=== PATIENT | male | born 1970 | race Caucasian/White ===

== ENCOUNTER 2023-02-03 09:00 | Emergency (ER) | payer SELFPAY ==
[2023-02-03 09:03] VITALS: BP 174/105; PULSE 80; RESP 20; O2SAT 98
--- NOTE | 2023-02-03 09:15 | W.ED.BACK ---
HPI - Back Pain/Injury General: Chief Complaint: Nausea/Vomiting/Diarrhea Stated Complaint: Lower back pain, N/V Time Seen by Provider: 02/03/23 09:04 Source: patient Mode of arrival: ambulatory Limitations: no limitations History of Present Illness: Patient is a nice 53-year-old male presents to ED today with presumedly his for complaints of nausea, vomiting, and back pain. Patient states this morning he began feeling sick to his stomach and nauseous. States shortly after he began noticing pain to his lower back with slight left-sided dominance. Patient states he has chronic back pains so initially thought his pain could be secondary to that. 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 Patient does not seem to be able to tell me whether he feels like this pain is his normal back discomfort only worse in severity or if this pain feels differently. He does not seem to feel like the pain radiates around into his abdomen or groin. No urinary symptoms. No history of nephro or ureterolithiasis. He is not complaining of pain radiating down into his legs but states it does seem to radiate into left buttock. MD elicited complaint: back pain Pertinent past history: prior back pain Onset (ago): hour(s) Timing: constant Severity: severe Similar Symptoms Previously: Yes Location: lumbar spine and left lower back Radiation: none Exacerbating factors: movement Relieving factors: none Associated symptoms: Reports nausea and vomiting; Deny abdominal pain, chills, change in bowel habits, dysuria, fatigue, fever(s) or urinary urgency Work related injury: No Review of Systems Const: Denies: fever(s), chills, body aches, fatigue or malaise Card: Denies: chest pain Resp: Denies: dyspnea GI: Reports: nausea and vomiting; Denies: abdominal pain or change in bowel habits : Denies: flank pain, difficulty urinating, dysuria, urinary frequency, urinary urgency or urinary hesitancy Musc: Reports: back pain; Denies: neck pain, extremity pain, extremity swelling, joint pain or joint swelling Skin/Breast: Denies: rash Neuro: Denies: headache(s), numbness in extremities, weakness in extremities or sensory changes Physical Exam Const: COMMON NORMALS: patient oriented x3, no limitations, healthy appearing, alert and well nourished GENERAL APPEARANCE: in distress (appears significant uncomfortable secondary to pain) ORIENTATION/CONSCIOUSNESS: Yes awake, Yes oriented to person, Yes oriented to place and Yes oriented to time OTHER: pt is lying face down half way on exam bed secondary to pain HENMT: COMMON NORMALS: normocephalic and atraumatic HEAD & SCALP: normal to inspection, normocephalic and atraumatic Resp: COMMON NORMALS: normal respiratory effort and clear to auscultation bilaterally AUSCULTATION: clear to auscultation bilaterally Cardio: COMMON NORMALS: regular rate and regular rhythm RATE: regular rate RHYTHM: regular rhythm GI: OTHER: could not be performed as patient is lying face down on abdomen due to pain in back and states he cannot move from that position secondary to pain : COMMON NORMALS: Yes no CVA tenderness BLADDER/KIDNEY EXAM: Yes no CVA tenderness Back/Pelvis: COMMON NORMALS: no CVA tenderness THORACIC SPINE/UPPER BACK: No thoracic spinal tenderness, No paraspinal muscle tenderness and No paraspinal muscle spasm LUMBAR SPINE/LOWER BACK: Yes ROM limited, Yes lumbar spinal tenderness, Yes paraspinal muscle tenderness and No mass present SACROILIAC JOINTS: Yes SI joints normal SACRUM: no tenderness COCCYX: no tenderness BACK IMAGE (MALE): 1. TTP Extremity: COMMON NORMALS: no clubbing, cyanosis or edema, no calf tenderness and no pedal edema GENERAL: Yes normal exam except as noted Neuro: COMMON NORMALS: patient oriented x3, moves all extremities, no focal motor deficits and no sensory deficits noted SENSORIUM/ORIENTATION: Yes alert, Yes oriented to person, Yes oriented to place and Yes oriented to time GAIT: Yes Unable to assess gait Skin: COMMON NORMALS: no rashes or lesions noted GENERAL SKIN EXAM: no rashes or lesions noted Course ED course: Patient's pain seems fairly out of proportion to exam findings. In addition it was difficult to get his nausea/vomiting under control. Patient was reassessed multiple times. Eventually patient was able to roll over onto his back to allow better examination of his abdomen. Patient did report tenderness throughout his abdomen. Due to tenderness and clinical presentation I did opt to obtain CT imaging was normal. Patient was given additional pain and nausea medications and finally pain/nausea/vomiting seem to subside. Patient was once again reassessed and states he does feel much better now. His blood work is overall unremarkable. UA is negative for hematuria. I did consider ureter stone however with no hematuria and no findings on CT imaging I think this is unlikely. Acute exacerbation to his chronic lower back pain is the most likely etiology. He has no acute neurologic deficits to warrant emergent CT imaging. He has no systemic complaints or fevers and no risk factors to suggest epidural abscess or discitis. Patient will be placed on steroids and muscle relaxers in addition to his daily Aleve. Recommend strict follow-up with his primary care in 1 to 2 days for reevaluation. Return ED precautions given. Vital Signs: Vital signs: Vital Signs Pulse Rate 81 02/03/23 15:21 Respiratory Rate 14 02/03/23 15:21 Blood Pressure 165/89 02/03/23 15:21 Pulse Oximetry 99 02/03/23 15:21 Oxygen Delivery Me thod Room Air 02/03/23 11:45 MDM - Back Pain/Injury Medical Decision Making See ED course Labs 02/03/23 09:45 02/03/23 09:45 Radiology Impressions Abdomen/Pelvis CT 02/03/23 11:22 IMPRESSION: 1. No acute abdominal or pelvic abnormalities. 2. No GI tract obstruction. 3. Normal appendix. 4. No hydronephrosis. 5. Normal aorta. Laboratory Results WBC 13.4 10^3/uL (4.0-10.0) H 02/03/23 09:45 RBC 5.11 10^6/uL (4.1-5.3) 02/03/23 09:45 Hgb 15.4 g/dL (11.7-16.6) 02/03/23 09:45 Hct 45.1 % (42.0-52.0) 02/03/23 09:45 MCV 88.3 fl (80-94) 02/03/23 09:45 MCH 30.1 pg (28.0-34.0) 02/03/23 09:45 MCHC 34.1 g/dL (30.0-36.0) 02/03/23 09:45 RDW 12.2 % (12.1-15.1) 02/03/23 09:45 Plt Count 319 10^3/cmm (130-400) 02/03/23 09:45 MPV 10.2 fL (7.4-10.4) 02/03/23 09:45 Neut % (Auto) 80.3 % 02/03/23 09:45 Lymph % (Auto) 10.4 % 02/03/23 09:45 [place] % (Auto) 5.0 % 02/03/23 09:45 Eos % (Auto) 2.7 % 02/03/23 09:45 Baso % (Auto) 1.2 % 02/03/23 09:45 Neut # (Auto) 10.77 10^3/uL (1.8-7.7) H 02/03/23 09:45 Lymph # (Auto) 1.4 10^3/uL (0.8-4.8) 02/03/23 09:45 [place] # (Auto) 0.7 10^3/uL (0.2-0.9) 02/03/23 09:45 Eos # (Auto) 0.4 10^3/uL (0.0-0.8) 02/03/23 09:45 Baso # (Auto) 0.2 10^3/uL (0.0-0.1) H 02/03/23 09:45 Nucleated RBC % (auto) 0 % 02/03/23 09:45 Nucleated RBCs # 0.0 /100WBC 02/03/23 09:45 Sodium 137 mmol/L (136-145) 02/03/23 09:45 Potassium 3.7 mmol/L (3.5-5.1) 02/03/23 09:45 Chloride 103 mmol/L (98-107) 02/03/23 09:45 Carbon Dioxide 21 mmol/L (22-29) L 02/03/23 09:45 Anion Gap 16.7 (5-19) 02/03/23 09:45 BUN 16 mg/dL (6-20) 02/03/23 09:45 Creatinine 0.9 mg/dL (0.7-1.2) 02/03/23 09:45 GFR Calculation 87.9 mL/min (90-130) L 02/03/23 09:45 Glucose 138 mg/dL (65-115) H 02/03/23 09:45 Calculated Osmolality 287 mOsm/kg (285-295) 02/03/23 09:45 Calcium 9.2 mg/dL (8.5-10.5) 02/03/23 09:45 Total Bilirubin 0.5 mg/dL (0.15-1.2) 02/03/23 09:45 AST 23 U/L (0-40) 02/03/23 09:45 ALT 24 U/L (0-41) 02/03/23 09:45 Alkaline Phosphatase 91 U/L (40-130) 02/03/23 09:45 Total Protein 7.0 g/dL (6.6-8.7) 02/03/23 09:45 Albumin 4.2 g/dL (3.5-5.2) 02/03/23 09:45 Globulin 2.8 g/dL (1.3-4.6) 02/03/23 09:45 Urine Color Yellow (Yellow) 02/03/23 09:30 Urine Appearance Clear (CLEAR) 02/03/23 09:30 Urine pH 7 (5-7) 02/03/23 09:30 Ur Specific [place] 1.010 (1.005-1.030) 02/03/23 09:30 Urine Protein Neg (Negative) 02/03/23 09:30 Urine Glucose (UA) Norm (Normal) 02/03/23 09:30 Urine Ketones 1+ (Negative) H 02/03/23 09:30 Urine Blood Neg (Negative) 02/03/23 09:30 Urine Nitrate Negative (Negative) 02/03/23 09:30 Urine Bilirubin Neg (Negative) 02/03/23 09:30 Urine Urobilinogen Norm mg/dL (Negative) 02/03/23 09:30 Ur Leukocyte Esterase Negative (Negative) 02/03/23 09:30 Discharge Plan Discharge Patient Disposition: Home Clinical Impression: Low back strain Qualifiers: Encounter type: initial encounter Qualified Code(s): S39.012A - Strain of muscle, fascia and tendon of lower back, initial encounter Condition: Stable Prescriptions: New methocarbamol 500 mg tablet 1,000 mg PO Q8H Qty: 30 0RF Medrol (Cruz) 4 mg tablets,dose pack See Rx Instructions .ROUTE .COMPLEX Qty: 21 0RF Rx Instructions: orally per package directions No Action multivitamin Tablet 1 tab PO DAILY Benadryl 25 mg Capsule 25 mg PO BEDTIME Discharge Orders: Discharge ED (Routine); Ordered 02/03/23 Ordered By: Floresita Jackson Coding Level of Care Code ED Environmental Protection Specialist for Tamerag Rah
[2023-02-03 09:49] LABS: Add Urine Microscopic? NO; Charge for UA Resulting for Rev
[2023-02-03 09:51] LABS: Basophils # 0.2 10^3/uL (0.0-0.1); Basophils % 1.2 %; Eosinophils # 0.4 10^3/uL (0.0-0.8); Eosinophils % 2.7 %; Hematocrit 45.1 % (42.0-52.0); Hemoglobin 15.4 g/dL (11.7-16.6); Lymphocytes # 1.4 10^3/uL (0.8-4.8); Lymphocytes % 10.4 %; Mean Corpuscular HGB Conc 34.1 g/dL (30.0-36.0); Mean Corpuscular Hemoglobin 30.1 pg (28.0-34.0); Mean Corpuscular Volume 88.3 fl (80-94); Mean Platelet Volume 10.2 fL (7.4-10.4); Monocytes # 0.7 10^3/uL (0.2-0.9); Neutrophils # 10.77 10^3/uL (1.8-7.7); Neutrophils % 80.3 %; Nucleated Red Blood Cells % 0 %; Platelet Count 319 10^3/cmm (130-400); Red Blood Count 5.11 10^6/uL (4.1-5.3); Red Cell Distribution Width 12.2 % (12.1-15.1); White Blood Count 13.4 10^3/uL (4.0-10.0)
[2023-02-03 10:00] VITALS: RESP 20
[2023-02-03] MEDS: morphine 4 mg/mL SDV 1 mL IVP (10:00)
[2023-02-03] MEDS: ketorolac 30 mg/mL INJ IVP (10:00)
[2023-02-03] MEDS: ondansetron 2 mg/ML SDV 2 mL 4 MG IVP (10:01)
--- NOTE | 2023-02-03 10:04 | DCPLANNER ---
pharmacy operations manager seen patient due to no primary care physician. pharmacy operations manager spoke with patient and offered to help get patient established with a primary care physician, patient stated that he does not have insurance. pharmacy operations manager gave patient the information to [facility] where patient can apply for the sliding scale.
[2023-02-03 10:08] LABS: Bilirubin Urine Neg (Negative); Blood Urine Neg (Negative); Glucose Urine UA Norm (Normal); Ketones Urine 1+ (Negative); Leukocyte Esterase Urine Negative (Negative); Nitrate Urine Negative (Negative); Protein Urine Neg (Negative); Urine Appearance Clear (CLEAR); Urine Color Yellow (Yellow); Urobilinogen Urine Norm (Negative); pH Urine 7 (5-7)
[2023-02-03 10:20] LABS: Alanine Aminotransferase 24 U/L (0-41); Albumin Level 4.2 g/dL (3.5-5.2); Alkaline Phosphatase 91 U/L (40-130); Anion Gap 16.7 (5-19); Aspartate Amino Transferase 23 U/L (0-40); Blood Urea Nitrogen 16 mg/dL (6-20); Calcium 9.2 mg/dL (8.5-10.5); Carbon Dioxide 21 mmol/L (22-29); Chloride 103 mmol/L (98-107); Globulin 2.8 g/dL (1.3-4.6); Glomerular Filtration Rate 87.9 mL/min (90-130); Glucose 138 mg/dL (65-115); Osmolality Calculated 287 mOsm/kg (285-295); Potassium 3.7 mmol/L (3.5-5.1); Sodium 137 mmol/L (136-145); Total Bilirubin 0.5 mg/dL (0.15-1.2)
[2023-02-03] MEDS: metoclopramide 5 mg/mL SDV 2 mL 10 MG IVP (10:48)
[2023-02-03] MEDS: dexamethasone 4 mg/mL INJ 8 MG IVP (10:48)
--- NOTE | 2023-02-03 11:21 | PC.PHAR ---
pt states he takes no rx medications pt states only taking the medications entered
--- NOTE | 2023-02-03 11:22 | CT_ITS ---
WS: [id number] CT ABDOMEN AND PELVIS WITH CONTRAST HISTORY: severe back/abdominal pain; N/V TECHNIQUE: Imaging performed of the abdomen and pelvis with IV contrast. Single phase imaging of the abdomen. Coronal and sagittal reformats are submitted. All CT scans at [facility] use at [address] [facility] one of these dose optimization techniques: automated exposure control; mA and/or kV adjustment per patient size (includes targeted exams where dose is matched to clinical indication); or iterative re construction. IV CONTRAST: Omnipaque 350; 100 mL IV. Oral contrast: Yes. DLP: 602.53 mGy.cm COMPARISON: 01/09/2013 Lower thorax: Lung bases are clear. Heart is normal size. No hiatal hernia. Liver/biliary system: Normal size with no intrahepatic dilatation. Gallbladder: Normal. No gallstones or wall thickening. No pericholecystic fluid. Pancreas: Normal size pancreas and pancreatic duct. No adjacent inflammation. Spleen: Normal size spleen. No mass or infarct. Adrenal glands: Normal. Right kidney: Normal. Left kidney: Normal. Aorta: Normal. Lymphadenopathy: None. Free fluid: None. GI tract: No GI tract obstruction. No submucosal edema. Normal appendix. No diverticulosis. Abdominal wall: Fat containing umbilical hernia. Pelvis: No free fluid or adenopathy within the pelvis. Bones: Moderate degenerative disc disease at L4-5 and L5-S1. Bone island proximal LEFT femur. CT/CT abdomen pelvis w con* [id number] IMPRESSION: 1. No acute abdominal or pelvic abnormalities. 2. No GI tract obstruction. 3. Normal appendix. 4. No hydronephrosis. 5. Normal aorta.
[2023-02-03 11:45] VITALS: BP 140/73; PULSE 83; RESP 22; O2SAT 97
[2023-02-03] MEDS: iohexol 350 mg/mL 500 mL Btl (per mL) IV (11:47)
[2023-02-03] MEDS: tizanidine 4 mg Tablet 2 MG PO (11:51)
[2023-02-03] MEDS: HYDROmorphone 1 mg/mL INJ 1 mL IVP (13:16)
[2023-02-03] MEDS: promethazine 25 mg/mL SDV 1 mL 50 MG IM (13:31)
[2023-02-03 15:21] VITALS: BP 165/89; PULSE 81; RESP 14; O2SAT 99
== END 2023-02-03 15:22 | disposition home or self-care (01) ==
PROVIDERS: Emergency Provider Physician Assistant
DX: S39.012A Strain of muscle, fascia and tendon of lower back, initial encounter (principal); X58.XXXA Exposure to other specified factors, initial encounter
CPT/HCPCS: 36415; 74177; 80053; 81003; 85025; 96372; 96374; 96375; 99285; J1100; J1170; J1885; J2270; J2405; J2550; J2765; Q9967

== ENCOUNTER 2023-09-21 09:47 | Outpatient (CLI) | payer OTHER, SELFPAY ==
--- NOTE | 2023-09-21 10:00 | XR_ITS ---
WS: [id number] Lumbar spine, 3 views, 09/21/2023 Clinical Data: PAIN ROM DIFFICULTY Comparison: CT lumbar spine, 05/27/2012 Findings: No compression fractures or subluxation is seen. There is degenerative disc narrowing at L4-L5 and L5 -S1. Accompanying osteophytes are seen at L4-S1. The transverse processes and SI joints are normal. There is loss of the normal lordotic curvature. 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
--- NOTE | 2023-09-21 10:00 | XR_ITS ---
WS: [id number] Left knee, AP and lateral views, 09/21/2023 Clinical Data: PAIN ROM DIFFICULTY Comparison: None. Findings: No fractures or dislocations are seen. The joint spaces are normal. The patella is intact. The soft t issues are unremarkable. Impression: Negative left knee. Kellgren-Alex Classification: grade 0 (none): definite absence of x-ray changes of osteoarthritis
== END 2023-09-21 09:48 | disposition home or self-care (01) ==
PROVIDERS: PCP Emergency Medicine; Visit Provider Emergency Medicine
DX: Z02.71 Encounter for disability determination (principal); M51.37 Other intervertebral disc degeneration, lumbosacral region; M47.817 Spondylosis without myelopathy or radiculopathy, lumbosacral region; M53.86 Other specified dorsopathies, lumbar region; M25.562 Pain in left knee; M25.662 Stiffness of left knee, not elsewhere classified
CPT/HCPCS: 72100; 73560

== ENCOUNTER 2024-01-02 11:29 | Emergency (ER) | payer SELFPAY ==
[2024-01-02 11:40] VITALS: BP 154/94; PULSE 76; RESP 18; TEMP 36.4; O2SAT 100; BMI 26.7
--- NOTE | 2024-01-02 11:49 | ED_ITS ---
HPI - Back Pain/Injury General: Chief Complaint: Back Pain/Injury Stated Complaint: back pain Time Seen by Provider: 01/02/24 11:39 Source: patient Mode of arrival: ambulatory Limitations: no limitations History of Present Illness: Patient is a 53-year-old male who presents to ED today for evaluation and treatment of left lower back pain. Patient states yesterday he was picking up a flowerpot and immediately felt something pull to his left lower back and has had discomfort since. States pain does not seem to radiate around into his abdomen or chest. He is not having any radicular symptoms down into his legs. No saddle anesthesia or bowel or bladder dysfunction. MD elicited complaint: back injury Pertinent past history: prior back pain Onset (ago): day(s) (yesterday) Timing: constant Severity: severe Similar Symptoms Previously: Yes Location: left lower back Radiation: none Exacerbating factors: movement, walking and lifting Relieving factors: none Context: while lifting Associated symptoms: Reports no associated symptoms; Deny abdominal pain, chills, dysuria, fatigue, fever(s) or urinary urgency Work related injury: No Review of Systems Const: Denies: fever(s), chills, body aches, fatigue or malaise Card: Denies: chest pain Resp: Denies: dyspnea GI: Denies: abdominal pain : Denies: flank pain, difficulty urinating, dysuria, urinary frequency, urinary urgency or urinary hesitancy Musc: Reports: back pain; Denies: neck pain, extremity pain, extremity swelling, joint pain or joint swelling Skin/Breast: Denies: rash Neuro: Denies: numbness in extremities, weakness in extremities or sensory changes Physical Exam Const: COMMON NORMALS: average body habitus, patient oriented x3, no limitations, healthy appearing, alert and well nourished GENERAL APPEARANCE: cooperative and in distress (lying face down on bed hanging off table due to back pain) ORIENTATION/CONSCIOUSNESS: Yes awake, Yes oriented to person, Yes oriented to place and Yes oriented to time Resp: COMMON NORMALS: normal respiratory effort Cardio: COMMON NORMALS: regular rate and regular rhythm RATE: regular rate RHYTHM: regular rhythm GI: COMMON NORMALS: Normal to inspection, nondistended, normoactive bowel sounds present, Soft to palpation, non-tender, No hepatosplenomegaly present and no masses PALPATION: Yes Soft to palpation and Yes No hepatosplenomegaly present : COMMON NORMALS: Yes no CVA tenderness BLADDER/KIDNEY EXAM: Yes no CVA tenderness Back/Pelvis: COMMON NORMALS: no CVA tenderness, thoracic and lumbar spine normal to inspection, no thoracic nor lumbar tenderness and straight leg raise negative bilaterally THORACIC SPINE/UPPER BACK: No thoracic spinal tenderness, No paraspinal muscle tenderness and No paraspinal muscle spasm LUMBAR SPINE/LOWER BACK: No lumbar spinal tenderness, Yes paraspinal muscle tenderness Lumbar paraspinal muscle tenderness: left, Yes paraspinal muscle spasm Lumbar paraspinal muscle spasm: left, No mass present and Yes straight leg raise negative bilaterally PELVIS: Yes buttocks normal and No sciatic notch tenderness SACROILIAC JOINTS: Yes SI joints normal SACRUM: no tenderness COCCYX: no tenderness Extremity: COMMON NORMALS: no clubbing, cyanosis or edema, no calf tenderness and no pedal edema GENERAL: Yes normal exam except as noted Neuro: COMMON NORMALS: patient oriented x3, moves all extremities, no focal motor deficits and no sensory deficits noted SENSORIUM/ORIENTATION: Yes alert, Yes oriented to person, Yes oriented to place and Yes oriented to time GAIT: Yes Unable to assess gait MOTOR EXAM: 5/5 motor strength present throughout Skin: COMMON NORMALS: no rashes or lesions noted GENERAL SKIN EXAM: no rashes or lesions noted Course Vital Signs: Vital signs: Vital Signs Temperature 97.5 F L 01/02/24 11:40 Pulse Rate 62 01/02/24 12:47 Respiratory Rate 18 01/02/24 11:40 Blood Pressure 187/108 01/02/24 12:47 Pulse Oximetry 98 01/02/24 12:47 Oxygen Delivery Me thod Room Air 01/02/24 12:47 MDM - Back Pain/Injury Medical Decision Making Patient here with a muscle strain/pull to his left lower back. He feels better after IV medications given here and stating he feels well enough to go home. He will be placed on anti-inflammatories, steroids, muscle relaxers at home. Recommend other conservative therapies with ice and heat. Recommend follow-up with primary care in a week or so if symptoms do not seem to be improving. Return ED precautions given. Differential Diagnosis Likely lumbar radiculopathy and strain of lumbar region Medical Records I reviewed the patient's medical records. No radiology studies performed this visit Discharge Plan Discharge Patient Disposition: Home Clinical Impression: Strain of lumbar region Qualifiers: Encounter type: initial encounter Qualified Code(s): S39.012A - Strain of muscle, fascia and tendon of lower back, initial encounter Condition: Stable Prescriptions: New methocarbamol 500 mg tablet 1,000 mg PO Q8H Qty: 30 0RF prednisone 10 mg tablet 10 mg PO DAILY 6 Days Qty: 20 0RF Rx Instructions: Take 5 tabs on day 1-2, 4 tabs on day 3, 3 tabs on day 4, 2 tabs on day 5, and 1 tab on day 6 ibuprofen 800 mg tablet 800 mg PO Q8H PRN (Reason: pain) Qty: 20 0RF No Action multivitamin Tablet 1 tab PO DAILY Benadryl 25 mg Capsule 25 mg PO BEDTIME Discharge Orders: Discharge ED (Routine); Ordered 01/02/24 Ordered By: Floresita Jackson Referrals: Becky Garcia [Primary Care Provider] - Patient Instructions: Low Back Strain (ED) Activity Restrictions/Additional Instructions: You may take medications at home to help with your discomfort. You may also use ice and heat as needed. Please follow-up with your primary care provider in a week or so if symptoms do not seem to be improving. Coding Level of Care Code ED Accounts Receivable Executive for Rohit Monreal
[2024-01-02] MEDS: orphenadrine 30 mg/mL Inj 2 mL 60 MG IV (12:34)
[2024-01-02] MEDS: ketorolac 60 mg/2 mL INJ 30 MG IVP (12:37)
[2024-01-02] MEDS: morphine 4 mg/mL SDV 1 mL IVP (12:39)
[2024-01-02] MEDS: dexamethasone 10 mg/mL INJ IV (12:43)
[2024-01-02 12:47] VITALS: BP 187/108; PULSE 62; O2SAT 98
[2024-01-02] MEDS: ondansetron 2 mg/ML SDV 2 mL 4 MG IVP (12:52)
[2024-01-02 13:50] VITALS: PULSE 71; O2SAT 98
== END 2024-01-02 13:51 | disposition home or self-care (01) ==
PROVIDERS: Emergency Provider Physician Assistant; PCP Emergency Medicine
DX: S39.012A Strain of muscle, fascia and tendon of lower back, initial encounter (principal); X50.0XXA Overexertion from strenuous movement or load, initial encounter
CPT/HCPCS: 96374; 96375; 99284; J1100; J1885; J2270; J2360; J2405

== ENCOUNTER → 2024-05-10 14:12 | Outpatient (BNVA) | payer SELFPAY | PROVIDERS: PCP Emergency Medicine; Visit Provider Orthopaedic Surgery | DX: M48.061 Spinal stenosis, lumbar region without neurogenic claudication (principal); M47.896 Other spondylosis, lumbar region | CPT/HCPCS: 72100 ==

== ENCOUNTER 2024-06-02 19:53 | Emergency (ER) | payer SELFPAY ==
[2024-06-02 19:56] VITALS: BP 196/90; PULSE 109; RESP 26; TEMP 36.7; O2SAT 98; BMI 26.3
--- NOTE | 2024-06-02 19:58 | ECG_ITS ---
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
--- NOTE | 2024-06-02 20:11 | XRR_ITS ---
PROCEDURE INFORMATION: Exam: XR Right Elbow Exam date and time: 06/02/2024 9:47 PM Age: 54 years old Clinical indication: Right; Patient HX: C/O pain and swelling to RT elbow. Currently on abx for cellulitits. ; Additional info: Pain, swelling TECHNIQUE: Imaging protocol: Radiologic exam of the right elbow. Views: 3 or more views. COMPARISON: No relevant prior studies available. FINDINGS: Bones/joints: Normal. Soft tissues: Normal. XR/XR elbow RT min 3V* [id number] IMPRESSION: No acute findings.
[2024-06-02 21:13] LABS: Basophils % 0.3 %; Eosinophils % 0.1 %; Hematocrit 41.1 % (37-53); Lymphocytes # 0.9 10^3/uL (0.8-4.8); Lymphocytes % 8.1 %; Mean Corpuscular HGB Conc 34.3 g/dL (30-55); Mean Corpuscular Hemoglobin 31.1 pg (27-33); Mean Corpuscular Volume 90.7 fl (82-101); Mean Platelet Volume 10.2 fL (7.4-10.4); Monocytes # 0.4 10^3/uL (0.2-0.9); Monocytes % 3.5 %; Neutrophils # 9.79 10^3/uL (1.8-7.7); Neutrophils % 87.3 %; Nucleated Red Blood Cells % 0 %; Platelet Count 396 10^3/cmm (157-399); Red Blood Count 4.53 10^6/uL (3.85-5.65); Red Cell Distribution Width 12.7 % (12.1-15.1); White Blood Count 11.21 10^3/uL (3.29-11.43)
--- NOTE | 2024-06-02 21:23 | XRR_ITS ---
PROCEDURE INFORMATION: Exam: XR Chest Exam date and time: 06/02/2024 9:47 PM Age: 54 years old Clinical indication: Chest pressure; Patient HX: C/O chest pain TECHNIQUE: Imaging protocol: Radiologic exam of the chest. Views: 1 view. COMPARISON: CT abdomen pelvis w con* [id number] 02/03/2023 11:31 AM FINDINGS: Lungs: Unremarkable. No consolidation. Pleural spaces: Unremarkable. No pleural effusion. No pneumothorax. Heart/Mediastinum: Unremarkable. No cardiomegaly. Bones/joints: Unremarkable. XR/XR chest 1V portable [id number] IMPRESSION: No acute findings.
[2024-06-02 21:25] LABS: INR 0.99 (0.8-1.2)
[2024-06-02 21:28] LABS: D Dimer 0.61 ug/mLFEU (0-0.59)
[2024-06-02 21:32] LABS: Lactic Sepsis W/Reflex 1.2 mmol/L (0.5-2.2)
[2024-06-02 21:33] LABS: Alanine Aminotransferase 21 U/L (0-41); Albumin Level 4.7 g/dL (3.5-5.2); Alkaline Phosphatase 123 U/L (40-130); Anion Gap 17.3 (5-19); Aspartate Amino Transferase 21 U/L (0-40); Blood Urea Nitrogen 14 mg/dL (6-20); Carbon Dioxide 23 mmol/L (22-29); Chloride 102 mmol/L (98-107); Creatinine Clr Calc Pharmacy 77.7325; Glomerular Filtration Rate 69.5 mL/min (90-130); Glucose 141 mg/dL (65-115); Osmolality Calculated 289 mOsm/kg (285-295); Potassium 4.3 mmol/L (3.5-5.1); Sodium 138 mmol/L (136-145); Total Bilirubin 0.2 mg/dL (0.15-1.2); Total Protein 7.7 g/dL (6.6-8.7)
[2024-06-02 22:10] LABS: Troponin(5th) Baseline < 6 ng/L (0-15)
--- NOTE | 2024-06-02 22:36 | USR_ITS ---
PROCEDURE INFORMATION: Exam: US Duplex Right Upper Extremity Veins, Limited Exam date and time: 06/02/2024 11:51 PM Age: 54 years old Clinical indication: Edema, localized; Upper extremity, right; Additional info: Right arm swelling TECHNIQUE: Imaging protocol: Real-time duplex ultrasound of the right Upper Extremity with 2-D nye scale, color Doppler flow and spectral waveform analysis with image documentation. Limited exam focused on the right upper extremity veins. COMPARISON: CT abdomen pelvis w con* [id number] 02/03/2023 11:31 AM FINDINGS: Right deep veins: Unremarkable. Axillary and brachial veins are patent throughout without thrombus. Normal Doppler waveforms. Normal compressibility and/or augmentation response. Visualized internal jugular and subclavian veins are patent. Superficial veins: Unremarkable. Visualized cephalic and basilic veins are patent without thrombus. Soft tissues: Unremarkable. US/[place] [id number] IMPRESSION: No evidence of deep vein thrombosis.
[2024-06-02 22:40] VITALS: BP 161/99; PULSE 73; RESP 20; O2SAT 97
[2024-06-02 23:10] VITALS: PULSE 69; RESP 22; O2SAT 96
--- NOTE | 2024-06-02 23:33 | ED_ITS ---
Documented by User: BAMBI Worrell 06/03/24 00:19 HPI - General Adult 2 General: Chief complaint: General Medical Stated complaint: heart pound chest pain right arm pain swollen Time Seen by Provider: 06/02/24 22:22 Source: patient Mode of arrival: ambulatory Limitations: no limitations History of Present Illness: Patient is a 54-year-old male presenting to the emergency department complaining of right elbow pain and swelling onset past few days. He was seen in urgent care on 05/31 diagnosed with cellulitis and started on prednisone and Bactrim. He states that swelling has gotten better, however the pain has persisted. Swelling and pain noted to be near the right elbow joint. He also states that prior to symptoms of the pain and swelling, he had a rash to bilateral upper extremities and was treated subsequently with steroids for poison derick. He states that the pain is worse with palpation. No significant overlying skin changes are reported, also states he has been having some nausea, subjective fevers, chest pain, and shortness of breath. At this time examination, he appears very anxious, and noted to have elevated blood pressure. No other symptoms reported and he is afebrile at this time. MD complaint: Right elbow pain and swelling Onset (ago): day(s) Pain Consistency: other (Improving) Associated symptoms: Reports chest pain, dyspnea and nausea; Deny headache(s), rash, palpitations or vomiting Related Data Home Medications Medication Instructions Recorded Confirmed diphenhydramine HCl 25 mg capsule 25 mg PO BEDTIME 02/03/23 05/31/24 (Benadryl) multivitamin 1 tab PO DAILY 02/03/23 05/31/24 Previous Rx's Medication Instructions Recorded ibuprofen 800 mg tablet 800 mg PO Q8H PRN pain #20 tabs 01/02/24 famotidine 40 mg tablet (Pepcid) 40 mg PO BID #20 tabs 04/08/24 cyclobenzaprine 5 mg tablet 5 mg PO .hs PRN muscle spasm #30 04/26/24 tabs prednisone 20 mg tablet 40 mg (2 x 20 mg) PO DAILY 5 days 05/31/24 #10 tabs doxycycline hyclate 100 mg tablet 100 mg PO BID 10 days #20 tabs 06/02/24 Allergies Allergy/AdvReac Type Severity Reaction Status Date / Time No Known Allergies Allergy Verified 06/02/24 20:00 Review of Systems 2 General: Reports: 10 or more systems reviewed and unremarkable except in HPI and below Const: Reports: fever(s) (Subjective); Denies: chills or fatigue Eyes: Denies: change in vision ENMT: Denies: throat pain, ear or mastoid pain or nasal discharge Card: Reports: chest pain; Denies: palpitations, swelling of feet/ankles or lightheadedness Resp: Reports: dyspnea; Denies: productive cough or wheezing GI: Reports: nausea; Denies: abdominal pain, vomiting, diarrhea or constipation : Denies: flank pain, difficulty urinating, dysuria or urinary frequency Musc: Reports: joint pain (Right elbow) and joint swelling (Right elbow); Denies: neck pain or back pain Skin/Breast: Denies: rash Neuro: Denies: headache(s), numbness in extremities or weakness in extremities PFSH ED 2 PFSH: Medical History Lumbar stenosis Family History Other Diabetes Heart disease Hyperlipidemia Hypertension Social History Smoking and tobacco/nicotine status: never used tobacco/nicotine Physical Exam 2 Const: COMMON NORMALS: no acute distress, patient oriented x3, no limitations, healthy appearing, alert and well nourished GENERAL APPEARANCE: anxious HENMT: COMMON NORMALS: normocephalic and atraumatic HEAD & SCALP: n ormocephalic and atraumatic Neck/C-Spine: COMMON NORMALS: full ROM, supple and no meningeal signs Resp: COMMON NORMALS: normal respiratory effort, No use of accessory muscles and clear to auscultation bilaterally AUSCULTATION: clear to auscultation bilaterally Cardio: COMMON NORMALS: regular rate and regular rhythm RATE: regular rate RHYTHM: regular rhythm GI: COMMON NORMALS: Normal to inspection, nondistended, normoactive bowel sounds present, Soft to palpation and non-tender PALPATION: Yes Soft to palpation Extremity: COMMON NORMALS: full ROM, capillary refill normal, no joint enlargement and no clubbing, cyanosis or edema NARRATIVE EXTREMITY EXAM: Area of induration noted just inferior to patient's right elbow, no significant overlying skin changes. This area is tender to palpation. Distal pulses intact. Distal neurovascular status intact. No appreciable joint effusion over the right olecranon. Neuro: COMMON NORMALS: patient oriented x3, moves all extremities, no focal motor deficits and no sensory deficits noted SENSORIUM/ORIENTATION: Yes alert MENINGEAL SIGNS: Yes no meningeal signs Skin: COMMON NORMALS: no rashes or lesions noted GENERAL SKIN EXAM: no rashes or lesions noted Course 2 Vital Signs: Vital signs: Vital Signs Temperature 98.1 F 06/02/24 19:56 Pulse Rate 71 06/03/24 00:47 Respiratory Rate 18 06/03/24 00:47 Blood Pressure 163/94 06/03/24 00:47 Pulse Oximetry 96 06/03/24 00:47 Oxygen Delivery Me thod Room Air 06/02/24 19:56 MDM - General Adult Medical Decision Making Patient presented for evaluation of right upper extremity pain and swelling, recently seen in urgent care diagnosed with cellulitis and treated with Bactrim and steroid. Very anxious on examination, he did have reproducible tenderness to palpation of the right forearm just inferior to the olecranon, other did not appear to be any involvement of the olecranon with no appreciable joint effusion or significant swelling or redness of this area. His distal neurovascular status intact. Vitals unremarkable, noted to be afebrile. All of his lab work was negative, including negative lactic, negative CBC, and negative CMP. He was reporting some chest pain and shortness of breath, so Trop was ordered and negative. Repeat Trop also negative. EKG reviewed with physician, showing normal sinus rhythm with no acute ST segment changes. X-ray of the chest was negative for any acute findings. X-ray of the elbow did not demonstrate any findings as well. An ultrasound was obtained to rule out any clot, this again was negative. Patient also had stated that there was improvement of his symptoms over the past couple of days, and upon further investigation found that he is only taken a few doses of his Bactrim as he was only seen in the urgent care a couple of days ago. However we will switch to doxycycline, and he is to continue taking steroids. Strict return precautions are given and he follow-up with primary care next week. Case discussed with Dr. Ryder who agrees. Lab Data 06/02/24 20:58 06/02/24 20:58 Radiology Impressions Elbow X-Ray 06/02/24 20:11 IMPRESSION: No acute findings. Chest X-Ray 06/02/24 21:23 IMPRESSION: No acute findings. Venous Duplex 06/02/24 22:36 IMPRESSION: No evidence of deep vein thrombosis. Laboratory Results WBC 11.21 10^3/uL (3.29-11.43) 06/02/24 20:58 RBC 4.53 10^6/uL (3.85-5.65) 06/02/24 20:58 Hgb 14.10 g/dL (11.27-16.99) 06/02/24 20:58 Hct 41.1 % (37-53) 06/02/24 20:58 MCV 90.7 fl (82-101) 06/02/24 20:58 MCH 31.1 pg (27-33) 06/02/24 20:58 MCHC 34.3 g/dL (30-55) 06/02/24 20:58 RDW 12.7 % (12.1-15.1) 06/02/24 20:58 Plt Count 396 10^3/cmm (157-399) 06/02/24 20:58 MPV 10.2 fL (7.4-10.4) 06/02/24 20:58 Neut % (Auto) 87.3 % 06/02/24 20:58 Lymph % (Auto) 8.1 % 06/02/24 20:58 [place] % (Auto) 3.5 % 06/02/24 20:58 Eos % (Auto) 0.1 % 06/02/24 20:58 Baso % (Auto) 0.3 % 06/02/24 20:58 Neut # (Auto) 9.79 10^3/uL (1.8-7.7) H 06/02/24 20:58 Lymph # (Auto) 0.9 10^3/uL (0.8-4.8) 06/02/24 20:58 [place] # (Auto) 0.4 10^3/uL (0.2-0.9) 06/02/24 20:58 Eos # (Auto) 0.0 10^3/uL (0.0-0.8) 06/02/24 20:58 Baso # (Auto) 0.0 10^3/uL (0.0-0.1) 06/02/24 20:58 Nucleated RBC % (auto) 0 % 06/02/24 20:58 Nucleated RBCs # 0.0 /100WBC 06/02/24 20:58 PT 13.40 SECONDS (12.1-14.9) 06/02/24 20:58 INR 0.99 (0.8-1.2) 06/02/24 20:58 D-Dimer 0.61 ug/mLFEU (0-0.59) H 06/02/24 20:58 Sodium 138 mmol/L (136-145) 06/02/24 20:58 Potassium 4.3 mmol/L (3.5-5.1) 06/02/24 20:58 Chloride 102 mmol/L (98-107) 06/02/24 20:58 Carbon Dioxide 23 mmol/L (22-29) 06/02/24 20:58 Anion Gap 17.3 (5-19) 06/02/24 20:58 BUN 14 mg/dL (6-20) 06/02/24 20:58 Creatinine 1.1 mg/dL (0.7-1.2) 06/02/24 20:58 GFR Calculation 69.5 mL/min (90-130) L 06/02/24 20:58 Glucose 141 mg/dL (65-115) H 06/02/24 20:58 Calculated Osmolality 289 mOsm/kg (285-295) 06/02/24 20:58 Lactic Acid 1.2 mmol/L (0.5-2.2) 06/02/24 20:58 Calcium 10.0 mg/dL (8.5-10.5) 06/02/24 20:58 Total Bilirubin 0.2 mg/dL (0.15-1.2) 06/02/24 20:58 AST 21 U/L (0-40) 06/02/24 20:58 ALT 21 U/L (0-41) 06/02/24 20:58 Alkaline Phosphatase 123 U/L (40-130) 06/02/24 20:58 Troponin T Baseline < 6 ng/L (0-15) 06/02/24 20:58 Troponin T 120 Minute 6.00 ng/L (0-15) 06/02/24 23:03 Delta Troponin T 0.70982 ABS# (0-10) 06/02/24 23:03 Total Protein 7.7 g/dL (6.6-8.7) 06/02/24 20:58 Albumin 4.7 g/dL (3.5-5.2) 06/02/24 20:58 Globulin 3.0 g/dL (1.3-4.6) 06/02/24 20:58 All radiology interpretation(s) finalized by discharge Discharge Plan Discharge Patient Disposition: Home Clinical Impression: Cellulitis Qualifiers: Site of cellulitis: extremity Site of cellulitis of extremity: upper extremity Laterality: right Qualified Code(s): L03.113 - Cellulitis of right upper limb Condition: Stable Prescriptions: New doxycycline hyclate 100 mg tablet 100 mg PO BID 10 Days Qty: 20 0RF Discontinued sulfamethoxazole-trimethoprim [Bactrim DS] 800-160 mg tablet 1 tab PO BID 7 Days Qty: 14 0RF No Action famotidine [Pepcid] 40 mg tablet 40 mg PO BID Qty: 20 0RF cyclobenzaprine 5 mg tablet 5 mg PO .hs PRN (Reason: muscle spasm) Qty: 30 0RF prednisone 20 mg tablet 40 mg PO DAILY 5 Days Qty: 10 0RF multivitamin Tablet 1 tab PO DAILY Benadryl 25 mg Capsule 25 mg PO BEDTIME ibuprofen 800 mg tablet 800 mg PO Q8H PRN (Reason: pain) Qty: 20 0RF Discharge Orders: Discharge ED (Routine); Ordered 06/03/24 Ordered By: Luke Barron Referrals: Shakira Lui, [employer] [Primary Care Provider] - Discharge Diet: Usual diet Discharge Activity: Increase activity as tolerated Patient Instructions: Cellulitis (ED) Activity Restrictions/Additional Instructions: Stop your Bactrim and take doxycycline as prescribed. Continue your steroids. Monitor for any new or worsening of symptoms and return for reevaluation. Otherwise follow-up with primary care next week. Coding Level of Care Code ED Design Engineer for Rohit Monreal Documented by User: Fortino Stapleton DO Aleksey 06/03/24 02:02 HPI - General Adult 2 General: Chief complaint: General Medical Stated complaint: heart pound chest pain right arm pain swollen Time Seen by Provider: 06/02/24 22:22 Related Data Home Medications Medication Instructions Recorded Confirmed diphenhydramine HCl 25 mg capsule 25 mg PO BEDTIME 02/03/23 05/31/24 (Benadryl) multivitamin 1 tab PO DAILY 02/03/23 05/31/24 Previous Rx's Medication Instructions Recorded ibuprofen 800 mg tablet 800 mg PO Q8H PRN pain #20 tabs 01/02/24 famotidine 40 mg tablet (Pepcid) 40 mg PO BID #20 tabs 04/08/24 cyclobenzaprine 5 mg tablet 5 mg PO .hs PRN muscle spasm #30 04/26/24 tabs prednisone 20 mg tablet 40 mg (2 x 20 mg) PO DAILY 5 days 05/31/24 #10 tabs doxycycline hyclate 100 mg tablet 100 mg PO BID 10 days #20 tabs 06/02/24 Allergies Allergy/AdvReac Type Severity Reaction Status Date / Time No Known Allergies Allergy Verified 06/02/24 20:00 PFSH ED 2 PFSH: Medical History Lumbar stenosis Family History Other Diabetes Heart disease Hyperlipidemia Hypertension Social History Smoking and tobacco/nicotine status: never used tobacco/nicotine Course 2 Vital Signs: Vital signs: Vital Signs Temperature 98.1 F 06/02/24 19:56 Pulse Rate 71 06/03/24 00:47 Respiratory Rate 18 06/03/24 00:47 Blood Pressure 163/94 06/03/24 00:47 Pulse Oximetry 96 06/03/24 00:47 Oxygen Delivery Me thod Room Air 06/02/24 19:56 MDM - General Adult Medical Decision Making Patient presented for evaluation of right upper extremity pain and swelling, recently seen in urgent care diagnosed with cellulitis and treated with Bactrim and steroid. Very anxious on examination, he did have reproducible tenderness to palpation of the right forearm just inferior to the olecranon, other did not appear to be any involvement of the olecranon with no appreciable joint effusion or significant swelling or redness of this area. His distal neurovascular status intact. Vitals unremarkable, noted to be afebrile. All of his lab work was negative, including negative lactic, negative CBC, and negative CMP. He was reporting some chest pain and shortness of breath, so Trop was ordered and negative. Repeat Trop also negative. EKG reviewed with physician, showing normal sinus rhythm with no acute ST segment changes. X-ray of the chest was negative for any acute findings. X-ray of the elbow did not demonstrate any findings as well. An ultrasound was obtained to rule out any clot, this again was negative. Patient also had stated that there was improvement of his symptoms over the past couple of days, and upon further investigation found that he is only taken a few doses of his Bactrim as he was only seen in the urgent care a couple of days ago. However we will switch to doxycycline, and he is to continue taking steroids. Strict return precautions are given and he follow-up with primary care next week. Case discussed with Dr. Ryder who agrees. This patient was originally seen by Mr. Anderson PA-C.? I agree with his history, evaluation, and treatment. Lab Data 06/02/24 20:58 06/02/24 20:58 Radiology Impressions Elbow X-Ray 06/02/24 20:11 IMPRESSION: No acute findings. Chest X-Ray 06/02/24 21:23 IMPRESSION: No acute findings. Venous Duplex 06/02/24 22:36 IMPRESSION: No evidence of deep vein thrombosis. Laboratory Results WBC 11.21 10^3/uL (3.29-11.43) 06/02/24 20:58 RBC 4.53 10^6/uL (3.85-5.65) 06/02/24 20:58 Hgb 14.10 g/dL (11.27-16.99) 06/02/24 20:58 Hct 41.1 % (37-53) 06/02/24 20:58 MCV 90.7 fl (82-101) 06/02/24 20:58 MCH 31.1 pg (27-33) 06/02/24 20:58 MCHC 34.3 g/dL (30-55) 06/02/24 20:58 RDW 12.7 % (12.1-15.1) 06/02/24 20:58 Plt Count 396 10^3/cmm (157-399) 06/02/24 20:58 MPV 10.2 fL (7.4-10.4) 06/02/24 20:58 Neut % (Auto) 87.3 % 06/02/24 20:58 Lymph % (Auto) 8.1 % 06/02/24 20:58 [place] % (Auto) 3.5 % 06/02/24 20:58 Eos % (Auto) 0.1 % 06/02/24 20:58 Baso % (Auto) 0.3 % 06/02/24 20:58 Neut # (Auto) 9.79 10^3/uL (1.8-7.7) H 06/02/24 20:58 Lymph # (Auto) 0.9 10^3/uL (0.8-4.8) 06/02/24 20:58 [place] # (Auto) 0.4 10^3/uL (0.2-0.9) 06/02/24 20:58 Eos # (Auto) 0.0 10^3/uL (0.0-0.8) 06/02/24 20:58 Baso # (Auto) 0.0 10^3/uL (0.0-0.1) 06/02/24 20:58 Nucleated RBC % (auto) 0 % 06/02/24 20:58 Nucleated RBCs # 0.0 /100WBC 06/02/24 20:58 PT 13.40 SECONDS (12.1-14.9) 06/02/24 20:58 INR 0.99 (0.8-1.2) 06/02/24 20:58 D-Dimer 0.61 ug/mLFEU (0-0.59) H 06/02/24 20:58 Sodium 138 mmol/L (136-145) 06/02/24 20:58 Potassium 4.3 mmol/L (3.5-5.1) 06/02/24 20:58 Chloride 102 mmol/L (98-107) 06/02/24 20:58 Carbon Dioxide 23 mmol/L (22-29) 06/02/24 20:58 Anion Gap 17.3 (5-19) 06/02/24 20:58 BUN 14 mg/dL (6-20) 06/02/24 20:58 Creatinine 1.1 mg/dL (0.7-1.2) 06/02/24 20:58 GFR Calculation 69.5 mL/min (90-130) L 06/02/24 20:58 Glucose 141 mg/dL (65-115) H 06/02/24 20:58 Calculated Osmolality 289 mOsm/kg (285-295) 06/02/24 20:58 Lactic Acid 1.2 mmol/L (0.5-2.2) 06/02/24 20:58 Calcium 10.0 mg/dL (8.5-10.5) 06/02/24 20:58 Total Bilirubin 0.2 mg/dL (0.15-1.2) 06/02/24 20:58 AST 21 U/L (0-40) 06/02/24 20:58 ALT 21 U/L (0-41) 06/02/24 20:58 Alkaline Phosphatase 123 U/L (40-130) 06/02/24 20:58 Troponin T Baseline < 6 ng/L (0-15) 06/02/24 20:58 Troponin T 120 Minute 6.00 ng/L (0-15) 06/02/24 23:03 Delta Troponin T 0.54021 ABS# (0-10) 06/02/24 23:03 Total Protein 7.7 g/dL (6.6-8.7) 06/02/24 20:58 Albumin 4.7 g/dL (3.5-5.2) 06/02/24 20:58 Globulin 3.0 g/dL (1.3-4.6) 06/02/24 20:58 Discharge Plan Discharge Patient Disposition: Home Clinical Impression: Cellulitis Qualifiers: Site of cellulitis: extremity Site of cellulitis of extremity: upper extremity Laterality: right Qualified Code(s): L03.113 - Cellulitis of right upper limb Condition: Stable Prescriptions: New doxycycline hyclate 100 mg tablet 100 mg PO BID 10 Days Qty: 20 0RF Discontinued sulfamethoxazole-trimethoprim [Bactrim DS] 800-160 mg tablet 1 tab PO BID 7 Days Qty: 14 0RF No Action famotidine [Pepcid] 40 mg tablet 40 mg PO BID Qty: 20 0RF cyclobenzaprine 5 mg tablet 5 mg PO .hs PRN (Reason: muscle spasm) Qty: 30 0RF prednisone 20 mg tablet 40 mg PO DAILY 5 Days Qty: 10 0RF multivitamin Tablet 1 tab PO DAILY Benadryl 25 mg Capsule 25 mg PO BEDTIME ibuprofen 800 mg tablet 800 mg PO Q8H PRN (Reason: pain) Qty: 20 0RF Discharge Orders: Discharge ED (Routine); Ordered 06/03/24 Ordered By: Luke Barron Referrals: Shakira Lui NP [Primary Care Provider] - Discharge Diet: Usual diet Discharge Activity: Increase activity as tolerated Patient Instructions: Cellulitis (ED) Activity Restrictions/Additional Instructions: Stop your Bactrim and take doxycycline as prescribed. Continue your steroids. Monitor for any new or worsening of symptoms and return for reevaluation. Otherwise follow-up with primary care next week. Coding Level of Care Code ED Design Engineer for Rohit Monreal
[2024-06-02 23:35] LABS: Troponin 5 2HR Delta 0.00001 ABS# (0-10)
--- NOTE | 2024-06-02 23:47 | ECG_ITS ---
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 Measurements Intervals [place] Rate: 72 P: 69 ID: [id number] QRS: 107 QRSD: 102 T: 80 QT: 384 QTc: 420 Interpretive Statements SINUS RHYTHM RIGHT AXIS DEVIATION [QRS AXIS > 100] Compared to ECG 06/02/2024 19:58:55 Right-axis deviation now present Left posterior fascicular block no longer present Electronically Signed On 06-03-2024 20:09:03 CDT by Elia Onofre M.D. [id number]
[2024-06-03 00:47] VITALS: BP 163/94; PULSE 71; RESP 18; O2SAT 96
== END 2024-06-03 00:30 | disposition home or self-care (01) ==
PROVIDERS: Emergency Medicine; Emergency Provider Physician Assistant; PCP Nurse Practitioner Family
DX: L03.113 Cellulitis of right upper limb (principal)
CPT/HCPCS: 36415; 71045; 73080; 80053; 83605; 84484; 85025; 85378; 85610; 93005; 93971; 99285

== ENCOUNTER 2024-06-21 06:57 | Outpatient (CLI) | payer SELFPAY ==
--- NOTE | 2024-06-21 07:15 | MR_ITS ---
WS: [id number] MRI LUMBAR SPINE WITH CONTRAST TECHNIQUE: Sagittal T1, T2 and STIR imaging. Axial T1 and T2 imaging. Post gadolinium imaging was obt ained. CLINICAL INFORMATION: Back pain COMPARISON: MRI 2012 FINDINGS: Mild lumbar curve. No acute compression. Disc bulging worse at L3-L5. Tiny annular fissure at L3-4. L arge disc extrusion at L4-5 and 2012 presumably has been resected with RIGHT hemilaminectomy. L1-L2: Mild annular bulging. Mild facet arthropathy. L2-L3: Mild annular bulge with a shallow central protrusion. Slight effacement of the ventral thecal sac. Mild facet arthropathy. Foramen are patent. L3-L4: Slight anterolisthesis. Mild annular bulging with a shallow central protrusion and annular fis sure. Moderate to severe narrowing of the thecal sac with impingement of the subarticular recess and crowding of the nerve rootlets. Moderate facet arthropathy. Foramen are patent. L4-L5: Mild disc bulging with a shallow central protrusion. Spinal canal is patent. Mild RIGHT forami nal narrowing. Prior RIGHT hemilaminectomy. L5-S1: Mild disc bulging with a shallow central protrusion and osteophytic ridging. Impingement on th e LEFT S1 nerve root in the subarticular recess. Mild to moderate facet arthropathy. Mild to moderate LEFT and no significant RIGHT foraminal narrowing. Visualized pelvic bony structures: Normal. Paravertebral soft tissues: Normal. MR/MR lumbar spine wo/w con [id number] IMPRESSION: 1. Moderate narrowing of the thecal sac L3-4 due to central disc protrusion wi th annular fissure with crowding of the cauda equina nerve rootlets. This is pr ogressed since 2011. 2. No recurrent disc extrusion at L4-5. Prior RIGHT L4-5 hemilaminectomy with partial discectomy. 3. Disc bulging L5-S1 with a LEFT subarticular protrusion impinges the LEFT S1 nerve root. This appears progressed since 2011. 4. Mild to moderate LEFT L5-S1 foraminal narrowing.
== END 2024-06-21 06:58 | disposition home or self-care (01) ==
LOC: RAD 06:57
PROVIDERS: PCP Nurse Practitioner Family; Visit Provider Orthopaedic Surgery
DX: M48.061 Spinal stenosis, lumbar region without neurogenic claudication (principal); M51.26 Other intervertebral disc displacement, lumbar region; M51.36 Other intervertebral disc degeneration, lumbar region; M54.16 Radiculopathy, lumbar region; M47.898 Other spondylosis, sacral and sacrococcygeal region
CPT/HCPCS: 72158; A9577

== ENCOUNTER → 2024-06-27 15:03 | Outpatient (BNVA) | payer MEDICAID, SELFPAY | PROVIDERS: PCP Nurse Practitioner Family; Visit Provider Nurse Practitioner Family | DX: R73.9 Hyperglycemia, unspecified (principal) | CPT/HCPCS: 83036 ==

== ENCOUNTER → 2024-07-05 15:00 | Outpatient (BNVA) | payer MEDICAID, SELFPAY | PROVIDERS: PCP Nurse Practitioner Family; Visit Provider Orthopaedic Surgery | DX: Z01.818 Encounter for other preprocedural examination; M48.062 Spinal stenosis, lumbar region with neurogenic claudication | CPT/HCPCS: 99214 ==

== ENCOUNTER → 2024-08-20 12:49 | Outpatient (BNVA) | payer MEDICAID, SELFPAY | PROVIDERS: PCP Nurse Practitioner Family; Referring Provider Nurse Practitioner Family; Visit Provider Nurse Practitioner Family | DX: L30.9 Dermatitis, unspecified (principal); L29.89 Other pruritus; R55 Syncope and collapse; D22.5 Melanocytic nevi of trunk | CPT/HCPCS: 11104; 99203 ==

== ENCOUNTER → 2024-09-04 07:58 | Outpatient (BNVA) | payer MEDICAID, SELFPAY | PROVIDERS: PCP Nurse Practitioner Family; Visit Provider Nurse Practitioner Family | DX: L24.9 Irritant contact dermatitis, unspecified cause (principal) | CPT/HCPCS: 99213 ==

== ENCOUNTER 2024-12-06 08:59 | Emergency (ER) | payer MEDICAID, SELFPAY ==
[2024-12-06 09:11] VITALS: BP 151/90; PULSE 97; RESP 18; TEMP 36.7; O2SAT 99; BMI 25.8
--- NOTE | 2024-12-06 09:25 | W.ED.BACK ---
HPI - Back Pain/Injury General: Chief Complaint: Back Pain/Injury Stated Complaint: back pain Time Seen by Provider: 12/06/24 09:17 Source: patient Mode of arrival: ambulatory Limitations: no limitations History of Present Illness: 54-year-old male has a history of chronic back pain states has had back pain for years states he was having a coughing fit and having worst lower back pain states that sharp pain paraspinal rates her pain a 9 out of 10 he denies any bowel or bladder incontinence denies any fever Associated symptoms: Deny abdominal pain, chills, fever(s), nausea or vomiting Related Data Home Medications ?Medication ?Instructions ?Recorded ?Confirmed multivitamin 1 tab PO DAILY 02/03/23 12/06/24 acetaminophen 500 mg tablet 1,000 mg PO Q6H PRN Pain 12/06/24 12/06/24 cetirizine 10 mg tablet 10 mg PO DAILY 12/06/24 12/06/24 cyclobenzaprine 5 mg tablet 5 mg PO BEDTIME PRN muscle spasm 12/06/24 12/06/24 naproxen sodium 220 mg tablet 220 mg PO BID PRN Pain 12/06/24 12/06/24 (Aleve) Previous Rx's ?Medication ?Instructions ?Recorded diphenhydramine HCl 25 mg capsule 25 mg PO BEDTIME #30 caps 06/27/24 (Benadryl) Allergies Allergy/AdvReac Type Severity Reaction Status Date / Time No Known Allergies Allergy Verified 12/03/24 09:44 Review of Systems Const: Denies: fever(s), chills, body aches or change in appetite ENMT: Denies: throat pain or dental pain Card: Denies: chest pain Resp: Denies: dyspnea GI: Denies: abdominal pain, nausea, vomiting or diarrhea Musc: Reports: back pain; Denies: neck pain Skin/Breast: Denies: rash Neuro: Denies: headache(s) PFSH ED PFSH: Medical History Lumbar stenosis Family History Other Diabetes Heart disease Hyperlipidemia Hypertension Social History Smoking and tobacco/nicotine status: former use of tobacco/nicotine Physical Exam Const: COMMON NORMALS: no acute distress, patient oriented x3 and healthy appearing HENMT: COMMON NORMALS: normocephalic and atraumatic HEAD & SCALP: normocephalic and atraumatic Eye: COMMON NORMALS: conjunctivae normal CONJUNCTIVA: Yes conjunctivae normal Neck/C-Spine: COMMON NORMALS: full ROM and supple Chest: COMMONS NORMALS: normal inspection of the chest Resp: COMMON NORMALS: normal respiratory effort Cardio: COMMON NORMALS: regular rate RATE: regular rate Back/Pelvis: OTHER: Paraspinal tenderness no saddle anesthesia Extremity: COMMON NORMALS: normal to inspection and full ROM Neuro: COMMON NORMALS: patient oriented x3, moves all extremities and no focal motor deficits Psych: COMMON NORMALS: mental status grossly normal, Normal thought process present and cooperative THOUGHT PROCESS: Normal thought process present Skin: COMMON NORMALS: no rashes or lesions noted and no wounds GENERAL SKIN EXAM: no rashes or lesions noted Course Vital Signs: Vital signs: Vital Signs Temperature 98.1 F 12/06/24 09:11 Pulse Rate 97 12/06/24 09:11 Respiratory Rate 16 12/06/24 09:37 Blood Pressure 151/90 12/06/24 09:11 Pulse Oximetry 98 12/06/24 09:37 Oxygen Delivery Me thod Room Air 12/06/24 09:11 MDM - Back Pain/Injury Medical Decision Making Patient presents with back pain that is chronic in nature he has no signs of epidural abscess or cord compression he stable for discharge he is to follow-up with pain management as scheduled return if worsening he understands agrees to plan Medical Records I reviewed the patient's medical records. No radiology studies performed this visit Discharge Plan Discharge Patient Disposition: Home Clinical Impression: Back pain Condition: Stable Prescriptions: No Action Benadryl 25 mg capsule 25 mg PO BEDTIME Qty: 30 2RF multivitamin Tablet 1 tab PO DAILY cetirizine 10 mg Tablet 10 mg PO DAILY acetaminophen 500 mg Tablet 1,000 mg PO Q6H PRN (Reason: Pain) naproxen sodium [Aleve] 220 mg Tablet 220 mg PO BID PRN (Reason: Pain) cyclobenzaprine 5 mg tablet 5 mg PO BEDTIME PRN (Reason: muscle spasm) Discharge Orders: Discharge ED (Routine); Ordered 12/06/24 Ordered By: Miko Moreno Referrals: Shakira Lui NP [Primary Care Provider] - Discharge Diet: Advance as tolerated Discharge Activity: Resume usual activity Patient Instructions: Back Pain (ED) Print Language: Italian Coding Level of Care Code ED Doubler Operator for Rohit Monreal
--- NOTE | 2024-12-06 09:30 | PC.PHAR ---
Pt states he has an rx for cyclobenzaprine 5mg at hs prn muscle spasm filled 12/03/24 at [facility] but has not picked it up yet due to weather.
[2024-12-06 09:37] VITALS: RESP 16; O2SAT 98
[2024-12-06] MEDS: dexamethasone 10 mg/mL INJ IM (09:37)
[2024-12-06] MEDS: methocarbamol 750 mg Tablet 1500 MG PO (09:37)
[2024-12-06] MEDS: morphine 4 mg/mL SDV 1 mL IM (09:37)
[2024-12-06 10:24] VITALS: BP 159/93; PULSE 86; O2SAT 94
== END 2024-12-06 10:25 | disposition home or self-care (01) ==
PROVIDERS: Emergency Provider Emergency Medicine; PCP Nurse Practitioner Family
DX: M54.9 Dorsalgia, unspecified (principal); Z87.891 Personal history of nicotine dependence
CPT/HCPCS: 96372; 99284; J1100; J2270

== ENCOUNTER → 2024-12-11 14:06 | Outpatient (BNVA) | payer MEDICAID, SELFPAY | PROVIDERS: PCP Nurse Practitioner Family; Visit Provider Orthopaedic Surgery | DX: Z01.818 Encounter for other preprocedural examination (principal); M54.9 Dorsalgia, unspecified; M48.062 Spinal stenosis, lumbar region with neurogenic claudication | CPT/HCPCS: 36415; 72110; 80053; 81001; 85025 ==

== ENCOUNTER 2025-01-04 08:37 | Day surgery (SDC) | payer MEDICAID, SELFPAY ==
[2025-01-04] VITALS (11 sets, daily range): BP systolic 137–166; BP diastolic 85–101; PULSE 70–98; RESP 14–24; TEMP 36.1–36.4; O2SAT 91–99; BMI 25.8
--- NOTE | 2025-01-04 | XR_ITS ---
WS: [id number] Exam: XR lumbar spine 2-3V* [id number] Date/Time of Exam: 01/04/2025 12:00 AM Reason For Exam: OR PICS Single intraoperative AP image of the lumbar spine is submitted. The image was obtained for preop localization purposes.
[2025-01-04] MEDS: sodium chloride 0.9% 1,000 ML 30 ML IV (08:57)
--- NOTE | 2025-01-04 09:18 | ANES.PREANE2 ---
Pre-Anesthetic Assessment Height/Weight: Height 5 ft 8 in Weight 170 lb Temp Pulse Resp BP Pulse Ox O2 Del Method 97.5 F L 98 18 166/101 94 Room Air 01/04/25 08:54 01/04/25 08:54 01/04/25 08:54 01/04/25 08:54 01/04/25 08:54 01/04/25 09:11 Preop Diagnosis: Lumbar stenosis with neurogenic claudication Operation Date: 01/04/25 10:20 Proposed Procedures p Lumbar Decompression(Not Applicable) - Darryl Majano, DO Was Beta Joycelyn taken within 24 hours: N/A Was Clonidine taken within 24 hours: N/A Last intake: Intake Last Liquid Date 01/03/25 Last Liquid Time 22:00 Last Solid Date 01/03/25 Last Solid Time 22:00 Social No alcohol and No tobacco Exam alert, oriented x 3, clear to auscultation bilaterally and regular rate & rhythm Airway Submandibular: within normal limits Cervical ROM: within normal limits Mallampati: Class III Dentition: full Anesthetic Plan ASA status: 3 Anesthesia: General Other: History of PONV after prior back surgery NPO since yesterday evening Patient has been experiencing claudication with neurogenic bladder Denies hypertension, preop BP 166/101. No antihypertensives Labs from November reviewed and acceptable for procedure EKG sinus rhythm with right axis deviation Plan for GETA Medications/Allergies Home Medications ?Medication ?Instructions ?Recorded ?Confirmed ?Last Taken ?Type multivitamin 1 tab PO DAILY 02/03/23 01/02/25 01/03/25 History diphenhydramine HCl 25 mg capsule 25 mg PO BEDTIME #30 caps 06/27/24 01/02/25 01/03/25 Rx (Benadryl) acetaminophen 500 mg tablet 1,000 mg PO Q6H PRN Pain 12/06/24 01/02/25 01/02/25 History cetirizine 10 mg tablet 10 mg PO DAILY 12/06/24 01/02/25 01/04/25 History cyclobenzaprine 5 mg tablet 5 mg PO BEDTIME PRN muscle spasm 12/06/24 01/02/25 01/03/25 History gabapentin 300 mg capsule 300 mg PO TID #90 caps 12/10/24 01/02/25 01/03/25 Rx Allergies Allergy/AdvReac Type Severity Reaction Status Date / Time No Known Allergies Allergy Verified 01/04/25 09:07 Current Medications Generic Name Dose Route Start Last Admin Trade Name Freq PRN Reason Stop Dose Admin Sodium Chloride 1,000 mls @ 30 mls/hr 01/04/25 08:45 01/04/25 08:57 Sodium Chloride 0.9% IV 01/05/25 08:44 30 mls/hr .Q24H MAIKEL Administration PFSH Anesthesia Medical History Lumbar stenosis Family History Other Diabetes Heart disease Hyperlipidemia Hypertension Social History Smoking and tobacco/nicotine status: never used tobacco/nicotine Data Anesthesia Cardiac Studies: No Data to Display
--- NOTE | 2025-01-04 09:23 | W.PM.OPSUD ---
Surgery/Procedure H&P Update DATE OF PROCEDURE: January 04, 2025 DATE H&P PERFORMED: 12/11/24 H&P UPDATE INFORMATION: I have reviewed H&P completed within last 30 days, I have examined patient prior to procedure and No changes to prior documentation PREOP DIAGNOSIS: Lumbar stenosis with neurogenic claudication PLANNED PROCEDURE: Operation Date: 01/04/25 10:20 Proposed Procedures p Lumbar Decompression(Not Applicable) - Darryl Majano DO
[2025-01-04] MEDS: scopolamine 1 mg PATCH 1 PATCH TRANSDERMA (09:48)
[2025-01-04] MEDS: ceFAZolin 2,000 mg SDV 2000 MG IVP (09:50)
[2025-01-04] MEDS: lidocaine-epi 1% 20 mL INJ INJECTION (10:28)
--- NOTE | 2025-01-04 11:09 | PM.OP ---
Operative Report Date of procedure: January 04, 2025 Pre-op diagnosis: Lumbar stenosis neurogenic claudication Post-op diagnosis: same Procedure done: L3/4 laminectomy with partial facetectomy Surgeon: Darryl Majano DO Brief History: L3/4 laminectomy with partial facetectomy Patient is brought to the operative suite. After undergoing anesthesia they are placed in the prone position. All areas of impingement are well padded. Patient is then prepped and draped in the normal sterile fashion. A skin incision is made over the L3/4 level. This is confirmed under c-arm guidance. A series of dilators are passed and the tubular retractor is docked on the L3 lamina. A bovie is used to clear the soft tissue off the lamina and the L 3/4 facet joint. A high speed darling is then used to perform the laminectomy and take down the medial aspect of the L 3/4 facet joint. A kerrison rongeure was then used to take down the remaining lamina and smooth the edge of the laminectomy up to the point where the ligamentum flavum attaches. Attention was then brought to the medial aspect of the facet joint. The remaining medial aspect of the superior and inferior aspect of the facet joint were taken down with the kerrison from the pedicle of L3 to L 4. The facet joint had significant hypertrophy. Attention was then brought to the Ligamentum Flavum. The ligament was taken down from the lamina of L3 to L4 and out medially to the remaining facet joint. The ligament was thick. The dura was then exposed. The dura was in good repair. The L3 nerve was then traced with a curette out the L3/4 foramen and found to be adequately decompressed. The L4 nerve was traced with a curette around the L4 pedicle. The lateral recess was opened with a kerrison helping to further decompress the L4 nerve. Wound is then irrigated copiously with saline and surgiflo is used to stop any bleeding. The tubular retractor is removed and the wound is closed with vicryl and monocryl suture. Glue is then used to protect the wound. A sterile dressing is then placed. Patient was then placed in the supine position and transferred to the PACU in stable condition.
[2025-01-04] MEDS: HYDROcodone-acetaminophen 5-325 mg Tablet 1 TAB PO (11:55)
--- NOTE | 2025-01-04 12:16 | ANE.PACU2 ---
Inpatient post-anesthesia follow up: Airway intact: Yes Vital signs: Temperature 97.4 F Pulse Rate 70 Respiratory Rate 17 Blood Pressure 147/89 Pulse Oximetry 94 Oxygen Delivery Me thod Room Air Oxygen Flow Rate 6 Fraction of Inspir ed Oxygen Hydration adequate: Yes Nausea and vomiting: No Pain level: 1 Mental status: Baseline
== END 2025-01-04 12:16 | disposition home or self-care (01) ==
PROVIDERS: PCP Nurse Practitioner Family; Visit Provider Orthopaedic Surgery
PROC: (CPT 63005; principal; 2025-01-04 10:10)
DX: M48.062 Spinal stenosis, lumbar region with neurogenic claudication (principal); Z87.891 Personal history of nicotine dependence
CPT/HCPCS: 63047; 72100; 76000; J0131; J0690; J1100; J1200; J2250; J2405; J2704; J3010; J3490; J7030; J9999

== ENCOUNTER 2025-04-16 06:30 | Outpatient (RCR) | payer MEDICAID, SELFPAY | END 2025-05-16 23:59 | disposition home or self-care (01) | LOC: SPT 06:30 | PROVIDERS: Visit Provider Orthopaedic Surgery | DX: M54.50 Low back pain, unspecified (principal); G89.29 Other chronic pain | CPT/HCPCS: 97110; 97161 ==

== ENCOUNTER 2025-05-15 14:44 | Outpatient (CLI) | payer MEDICAID, SELFPAY ==
--- NOTE | 2025-05-15 15:15 | MR_ITS ---
WS: [id number] MRI LUMBAR SPINE NONCONTRAST HISTORY: Lumbar pain radiating to both legs, postop spine surgery December 2024. COMPARISON: 06/21/2024 TECHNIQUE: Sagittal and axial multisequence imaging is submitted. Straightening of the normal lumbar spine. Normal posterior alignment. No acute compression fractures or vertebral body marrow edema. There is a small amount of marrow edema in the posterior elements of L4. Moderate disc base narrowing at L4-5 and L5-S1. Conus terminates normally at L1-2 disc level. L1-L2: Mild annular disc bulging and facet arthritis. No significant stenosis. L2-L3: Mild annular disc bulging with a shallow central disc protrusion and annular fissure. Mild effacement of ventral CSF. Mild facet arthritis. Very mild subarticular encroachment. L3-L4: Mild annular disc bulging with a shallow central disc protrusion and annular fissure. Small LEFT hemilaminectomy defect. Moderate bilateral facet joint arthropathy. There is narrowing and encroachment upon the traversing L4 nerve roots in the subarticular recesses. Moderate central stenosis and subarticular recess stenosis. Similar to the prior study. Mild foraminal stenosis. L4-L5: Diffuse annular disc bulging prior RIGHT hemilaminectomy defect. Clumping of the nerve roots in the thecal sac. Mild subarticular recess and bilateral foraminal stenosis, RIGHT greater than LEFT. L5-S1: Small central disc protrusion with mild facet and ligamentum flavum hypertrophy. Central disc protrusion has decreased in size since the prior study. There is still mild contact on the S1 nerve roots but improved since the prior study. 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 MR/MR lumbar spine wo con* [id number] IMPRESSION: 1. L3-4: Status post LEFT hemilaminectomy defect. Continued moderate central a nd subarticular recess stenosis and mild foraminal stenosis. 2. L5-S1: Central disc protrusion has decreased in size. Less contact on the L EFT S1 nerve root. Moderate LEFT foraminal stenosis due to disc osteophyte dise ase. 3. L4-5: Prior RIGHT hemilaminectomy defect. Mild subarticular recess and bila teral foraminal stenosis. 4. Marrow edema in the posterior elements of L4 is new. Increased fluid and T2 signal surrounding the facet joints at L3-4 and L4-5 since the prior study. Pr obably related to the surgery.
== END 2025-05-15 14:45 | disposition home or self-care (01) ==
LOC: RAD 14:45
PROVIDERS: Visit Provider Orthopaedic Surgery
DX: M48.062 Spinal stenosis, lumbar region with neurogenic claudication (principal); M48.061 Spinal stenosis, lumbar region without neurogenic claudication; M51.26 Other intervertebral disc displacement, lumbar region; Z98.890 Other specified postprocedural states; M79.604 Pain in right leg; M79.605 Pain in left leg
CPT/HCPCS: 72148

== ENCOUNTER → 2025-08-12 09:48 | Outpatient (BNVA) | payer MEDICAID, SELFPAY | PROVIDERS: PCP Family Medicine; Visit Provider Family Medicine | DX: Z12.5 Encounter for screening for malignant neoplasm of prostate (principal); M48.062 Spinal stenosis, lumbar region with neurogenic claudication | CPT/HCPCS: 80053; 80061; 83036; 84153; 84439; 84443; 85025 ==